=== PATIENT | male | born 2000 | race Caucasian/White ===

== ENCOUNTER 2022-12-30 19:56 | Emergency (ER) | payer OTHER, SELFPAY ==
[2022-12-30 19:57] VITALS: BP 147/83; PULSE 78; RESP 15; TEMP 36.3; O2SAT 99; BMI 30.2
--- NOTE | 2022-12-30 20:22 | EDS_ITS ---
HPI HPI - GI History of Present Illness Chief Complaint: Flank Pain Informant: patient and parent Narrative Narrative: Patient presents with right flank pain. He states this woke him up. It waxes and wanes but does not go away. He is got nauseated at times but never vomited. It seemed like it was harder to start urination than normal. But he has no numbness tingling or radiation down his legs. Its not that bad right now. It has not radiated around to the front. He has never had this before. He does drink a lot of soda. His father has a history of kidney stones but he has not had them. 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 But he did not hurt himself and has not hurt himself recently. When he went to bed he felt perfectly fine. His mother states that he called into work because of this and this is the first day he has been just in 7 years so this is certainly abnormal for the patient. PFSH PFSH Medical History no medical history Home Medications hydrocodone-acetaminophen 5-325mg 5mg-325mg 1 tab PO Q6H PRN PRN Pain 3 days #10 TABLETS 12/30/22 [Rx Last Taken Unknown] naproxen 500 mg tablet 500 mg PO BID #14 tabs 12/30/22 [Rx Last Taken Unknown] ondansetron 4 mg disintegrating tablet 4 mg PO Q8H PRN PRN Nausea #10 tabs 12/30/22 [Rx Last Taken Unknown] tamsulosin 0.4 mg capsule (Flomax) 0.4 mg PO DAILY #7 caps 12/30/22 [Rx Last Taken Unknown] Allergy/AdvReac Type Severity Reaction Status Date / Time No Known Allergies Allergy Verified 12/30/22 20:00 Family History no significant family his Surgical History no surgical history Social History Smoking Status: Never smoker ROS ROS ED Constitutional Constitutional ED: Denies chills or fever(s) ENT ENT ED: Denies sore throat Cardiovascular Cardiovascular: Denies chest pain or palpitations Respiratory/Chest Respiratory/Chest: Denies cough or dyspnea Gastrointestinal Gastrointestinal: Reports nausea; Denies abdominal pain, constipation, diarrhea, melena or vomiting Genitourinary Genitourinary ED: Reports other Details: Mild trouble with urination off and on since the pain started. But no hematuria seen ; Denies dysuria or hematuria Musculoskeletal Musculoskeletal: Reports back pain and other Details: Patient has right back/flank pain. But moving and twisting does not bother it. Integumentary Denies rash Neurologic Neurologic: Denies paresthesias or weakness Endocrine Endocrinology: Denies polydipsia or polyuria Hematologic/Lymphatic Hematologic/Lymphatic: Denies easy bleeding or easy bruising Allergic/Immunologic Allergic/Immunologic ED: Denies urticaria EXAM Physical Exam Narrative Exam Narrative: Patient awake and alert. He is in no acute distress at this time. HEENT shows no trauma. Mucous membranes are minimally dry. Eyes show no icterus or pallor. Lungs are clear and there is no pain with a deep breath. Saturations are normal at 99% on room air. Heart is regular. I hear no murmur gallop rub or muffled tones. Pulses are equal x4. Abdomen is soft nondistended normal bowel sounds and is completely benign. No tenderness whatsoever. No inguinal tenderness. Back does show some very minimal right CVA tenderness but none with soft palpation. There is no pain with him bending twisting or sitting up. Motion does not seem to bother this. Skin shows no rash or vesicles. Const Vital Signs: 12/30/22 19:57 Temperature 97.4 F L Temperature Source Temporal Pulse Rate 78 Respiratory Rate 15 Blood Pressure 147/83 H Blood Pressure Mean 104 Pulse Ox 99 Oxygen Delivery Method Room Air MDM MDM MDM Narrative Medical decision making narrative: Independent interpretation the patient's CT of the abdomen without contrast that show a distal right UVJ stone approximately 2 mm. Final reading by radiology showed about a 1.1 mm distal stone with some mild hydro-. Patient CBC is normal other than minimal anemia. Electrolytes showed minimal elevation of chloride that should self correct. Glucose is 144 this needs to be rechecked but not acutely treated. Urine showed increased red cells consistent with a stone but no sign of infection. I rechecked the patient. I reexamined his abdomen. He still has no abdominal pain. He states the pain is a lot better he barely feels that at all. I explained that this size stone should pass. We will get him meds for this. He can strain the urine. We discussed reasons to return and follow-up. Lab Data Labs: Laboratory Results - last 24 hr 12/30/22 12/30/22 12/30/22 20:09 20:20 20:20 WBC 8.7 RBC 4.82 Hgb 12.8 L Hct 39.9 L MCV 82.8 MCH 26.6 L MCHC 32.1 RDW Std Deviation 41.1 RDW Coeff of Jeremiah 13.6 Plt Count 296 MPV 8.9 Immature Gran % (Auto) 0.300 Neut % (Auto) 81.4 H Lymph % (Auto) 12.0 L Graham % (Auto) 5.3 Eos % (Auto) 0.7 Baso % (Auto) 0.3 Absolute Neuts (auto) 7.1 Absolute Lymphs (auto) 1.05 Nucleated RBC % 0 Sodium 141 Potassium 3.9 Chloride 109 H Carbon Dioxide 26.0 Anion Gap 6 BUN 18 Creatinine 1.24 Estim Creat Clear Calc 97.84 Est GFR (MDRD) Af Amer 92 Est GFR (MDRD) Non-Af 76 BUN/Creatinine Ratio 14.5 Glucose 144 H Calcium 9.5 Urine Color Yellow Urine Clarity Clear Urine pH 6.0 Ur Specific [place] 1.020 Urine Protein 15 H Urine Glucose (UA) Normal Urine Ketones Negative Urine Occult Blood 150 H Urine Nitrite Negative Urine Bilirubin Negative Urine Urobilinogen Normal Ur Leukocyte Esterase Negative Urine RBC 10-25 SEEN Urine WBC 0 SEEN Ur Squamous Epith Cells 0 SEEN Urine Bacteria 0 SEEN Urine Mucus 2+ Radiography Diagnostic Testing: Clinical Impression(s) from Imaging Studies Abdomen/Pelvis CT 12/30/22 20:37 IMPRESSION: Mild hydronephrosis caused by right 1.1mm distal ureteral stone. Electronically Signed: Rudy Pierce MD at 21:01 EDT Reading Location ID and State: [facility] / [place] , Service support , Discharge Plan Triage Chief Complaint: Flank Pain ED Provider: Dar Painter Dx/Rx/DC Orders Clinical Impression: Kidney stone on right side, Hydronephrosis, right, Nausea Instructions: ED Kidney Stone w/ Colic Prescriptions: New hydrocodone-acetaminophen [hydrocodone-acetaminophen] 5-325 mg tablet 1 tab PO Q6H PRN PRN (Reason: Pain) 3 Days Qty: 10 0RF ondansetron [ondansetron] 4 mg tablet,disintegrating 4 mg PO Q8H PRN PRN (Reason: Nausea) Qty: 10 0RF naproxen 500 mg tablet 500 mg PO BID Qty: 14 0RF tamsulosin [Flomax] 0.4 mg capsule 0.4 mg PO DAILY Qty: 7 0RF Primary Care Provider: Care Physician,No Primary Referrals: Gerber Hearn MD [Med Staff - Active Staff] - 1 Week if not improving Care Physician,No Primary [Primary Care Provider] - Disposition Disposition: Home, Self Care
[2022-12-30] MEDS: Ketorolac 15 MG/ML Vial IV (20:32)
[2022-12-30] MEDS: Ondansetron 4 MG/2 ML Vial IV (20:32)
[2022-12-30] MEDS: 0.9% Normal Saline 1,000 ML 1000 ML IV (20:33)
--- NOTE | 2022-12-30 20:37 | CT_ITS ---
EXAM: CT ABDOMEN AND PELVIS WITHOUT INTRAVENOUS CONTRAST CLINICAL INDICATION: Pain right flank TECHNIQUE: Helically acquired images were obtained of the abdomen and pelvis without intravenous contrast. This CT exam was performed using one or more of the following dose reduction techniques: automated exposure control, adjustment of the mA and/or kV according to patient size, and/or use of iterative reconstruction technique. This report was created using [employer] report generation technology. RADIATION DOSE: CTDIvol = 11.52 mGy, DLP = 647.65 mGy-cm COMPARISON: None. FINDINGS: LOWER THORAX: Unremarkable. Lung bases are clear. No cardiomegaly. No significant pericardial effusion. ABDOMEN: LIVER: Unremarkable. Homogeneous. GALLBLADDER AND BILE DUCTS: Unremarkable. No calcified gallstones. No gallbladder distention or wall edema. No intra- or extrahepatic biliary ductal dilation. PANCREAS: Unremarkable. No focal cystic mass. SPLEEN: Unremarkable. Normal size without focal cystic or solid mass. ADRENALS: Unremarkable. No nodules. KIDNEYS AND URETERS: Mild hydronephrosis caused by right 1.1mm distal ureteral stone. Normal renal size and position. STOMACH AND BOWEL: Unremarkable. No stomach or bowel distention. No focal inflammatory change. PELVIS: APPENDIX: The appendix is visualized and is normal. BLADDER: Unremarkable. REPRODUCTIVE: Unremarkable as visualized. No mass. ABDOMEN and PELVIS: INTRAPERITONEAL SPACE: Unremarkable. No ascites or other fluid collection. No free air. BONES/JOINTS: Unremarkable. No suspicious lytic or blastic abnormality. SOFT TISSUES: Umbilical hernia containing fat. VASCULATURE: Unremarkable. Abdominal aorta is non-dilated. LYMPH NODES: Unremarkable. No enlarged lymph nodes. CT/Abdomen/Pelvis without Cont IMPRESSION: Mild hydronephrosis caused by right 1.1mm distal ureteral stone. Electronically Signed: Rudy Pierce MD at 21:01 EDT ,
[2022-12-30 20:40] LABS: Bacteria 0 SEEN /hpf (None Seen); Squamous Epithelial Cells - UA 0 SEEN /hpf (0-5)
[2022-12-30 20:41] LABS: Color, Urine Yellow (Yellow); Glucose, Dipstick Normal (Normal); Ketone-Dipstick Negative (Negative); Leukocyte Esterase-Dipstick Negative /ul (Negative); Nitrite-Dipstick Negative (Negative); Occult Blood-Urine 150 /ul (Negative); Protein-Dipstick 15 mg/dl (Negative); Urine Bilirubin Dipstick Negative (Negative); Urine Clarity Clear (Clear); Urine Urobilinogen Normal (Normal)
[2022-12-30 20:44] LABS: Anion Gap 6 (5-15); BUN 18 mg/dL (7-18); BUN/Creat Ratio 14.5 RATIO (10-20); Calcium,Total 9.5 mg/dL (8.5-10.1); Chloride 109 mmol/L (98-107); Creatinine, Serum 1.24 mg/dL (0.70-1.30); EST Glomerular Filtration Rate 76 mL/min (>60); Est Glom Filt Rate - Afr Amer 92 mL/min (>60); Estimated Creatinine Clearance 97.84 ml/min; Glucose 144 mg/dL (74-106); Potassium 3.9 mmol/L (3.5-5.1); Sodium Level 141 mmol/L (136-145)
[2022-12-30 20:50] LABS: Mucous, Urine 2+ /hpf (<or=2+); Red Blood Cells-Urine 10-25 SEEN /hpf (0-5); White Blood Cells 0 SEEN /hpf (0-5)
[2022-12-30 20:53] LABS: Absolute Lymphocyte Count 1.05 X10^3/uL (0.83-4.51); Absolute Neutrophil Count 7.1 X10^3/uL (2.0-7.7); Basophil# 0.03 X10^3/uL; Basophil% 0.3 % (0-1); Eosinophil# 0.06 X10^3/uL; Eosinophils% 0.7 % (0-5); Hematocrit 39.9 % (40-54); Hemoglobin 12.8 g/dL (13.0-16.5); Lymphocyte # 1.05 X10^3/ul (0.83-4.51); Mean Corp Hgb Conc 32.1 g/dL (32-36); Mean Corpuscular Hgb 26.6 pg (27.0-32.0); Mean Corpuscular Volume 82.8 fL (80-94); Mean Platelet Vol. 8.9 fl (6.2-12.0); Monocyte# 0.46 X10^3/uL; Monocyte% 5.3 % (0-10); NRBC Flagged by Analyzer 0 % (0-5); Neutrophil % 81.4 % (47-70); Platelet Count 296 K/mm3 (150-450); RBC Distribution Width CV 13.6 % (11.6-14.6); RBC Distribution Width SD 41.1 fl (35.1-43.9); Red Blood Count 4.82 M/mm3 (4.6-6.2); White Blood Count 8.7 K/mm3 (4.4-11.0)
== END 2022-12-30 21:32 | disposition home or self-care (01) ==
PROVIDERS: Emergency Provider Emergency Medicine; Visit Provider Emergency Medicine
DX: N13.2 Hydronephrosis with renal and ureteral calculous obstruction (principal); R10.9 Unspecified abdominal pain; D64.9 Anemia, unspecified; R11.0 Nausea
CPT/HCPCS: 74176; 80048; 81001; 85025; 96361; 96374; 96375; 99283; J7030; A4216; J2405